=== PATIENT | male | born 1990 | race African-American/Black ===

== ENCOUNTER 2019-11-01 00:27 | Emergency (ER) | payer MEDICAID ==
[~2019-11-01] VITALS: Ht 177.8 cm; Wt 78.0 kg
[2019-11-01 01:01] VITALS: BP 121/77
[2019-11-01] MEDS ORDERED: IBUPROFEN 600MG TABLET PO ONE (01:30)
== END 2019-11-01 03:00 | disposition home or self-care (01) ==
LOC: ER 00:27
DX: M25.562 Pain in left knee (principal); J45.909 Unspecified asthma, uncomplicated
CPT/HCPCS: 73562; 99283; L1830; Z7610

== ENCOUNTER 2023-08-20 18:17 | Emergency (ER) | payer MEDICAID ==
[~2023-08-20] VITALS: Ht 175.3 cm; Wt 84.4 kg
[~2023-08-20 18:17] MED LIST: MUPI15CR11 TP
[2023-08-20 18:30] VITALS: BP 141/89; PULSE 110; RESP 16; TEMP 98.2; O2SAT 98
[2023-08-20 19:57] LABS: BASOPHILS % 0.5 % (0.0-2.0); EOSINOPHILS % 0.6 % (0.0-5.0); HEMATOCRIT. 47.7 % (42.0-52.0); LYMPHOCYTES % 19.8 % (20.0-50.0); MEAN CORPUSCULAR HEMOGLOBIN 28.5 pg (28.0-32.0); MEAN CORPUSCULAR HGB CONC 33.4 g/dL (31.0-37.0); MEAN CORPUSCULAR VOLUME 85.3 fL (80.0-94.0); MEAN PLATELET VOLUME 9.1 fl (7.4-10.4); NEUTROPHILS % 70.1 % (40.0-76.0); PLATELET 313 x1000/uL (130-400); RED BLOOD CELL COUNT 5.59 mill/uL (4.7-6.1); RED CELL DISTRIBUTION WIDTH 14.1 % (11.6-14.6); WHITE BLOOD COUNT 8.3 x1000/uL (4.5-11.0)
[2023-08-20 20:11] LABS: ALANINE AMINOTRANSFERASE 53 IU/L (10-49); ALBUMIN 4.4 g/dL (3.2-4.8); ASPARTATE AMINOTRANSFERASE 25 IU/L (<34); BILIRUBIN TOTAL 0.3 mg/dL (0.1-1.0); CALCIUM 9.3 mg/dL (8.7-10.4); CARBON DIOXIDE 29 mEq/L (21-32); CHLORIDE 101 mEq/L (98-107); CREATININE 0.9 mg/dL (0.6-1.3); GLUCOSE 114 mg/dL (70-105); POTASSIUM 4.1 mEq/L (3.5-5.1); PROTEIN TOTAL 8.2 g/dL (6.0-8.3); SODIUM 136 mEq/L (136-145); UREA NITROGEN BLOOD 16 mg/dL (9-23)
== END 2023-08-20 19:00 | disposition left against medical advice (07) ==
LOC: ER 18:17
DX: R10.30 Lower abdominal pain, unspecified (principal); Z53.21 Procedure and treatment not carried out due to patient leaving prior to being seen by health care provider
CPT/HCPCS: 36415; 80053; 85025